=== PATIENT | female | born 1940 | race Caucasian/White ===

== ENCOUNTER 2017-01-02 06:56 | Day surgery (SDC) | payer OTHER ==
[2016-12-26 15:20] VITALS: BMI 28.0
--- NOTE | 2016-12-29 16:44 | HISTORY & PHYSICAL EXAMINATION ---
DATE OF ADMISSION: 01/02/2017 HISTORY OF PRESENT ILLNESS: A 76-year-old female presents for preop evaluation requesting surgery. Condition is located in the left heel and foot, described as aching and tender. Condition was noticed over 2 years ago. She denies any recent exposure, participation, or event or history of these conditions raise. Condition is graded as an 8 on a 10 point scale, gradually worsening over time, associated with signs and symptoms include aching, burning tenderness in the left. She indicates shoe gear can irritate the area more or improve it if there is no pressure over the area. She has had the pain in her heel for over 2 years. She had previous foot surgery performed on the right foot requesting a similar type of surgery performed on the left. She notes the pain in her left has gradually been worsening. She is unable to wear normal shoes due to discomfort over heel. She wears slip-on shoes and slippers most of the time to accommodate for the pain. Pain is graded as an 8-9 on a 10 point scale. Past treatments included x-ray, accommodative padding, accommodative shoes, and nonsteroidals with little relief. The patient refused to go to physical therapy, has had multiple conservative treatments by Dr. Gamez and is requesting surgical intervention, was sent to our office by Dr. Gamez for surgery. Due to the nature and severity of the discomfort, she is requesting surgical intervention. PAST SURGICAL HISTORY: Foot surgery in 2013, breast surgery, meniscus repair in 2015. PAST MEDICAL HISTORY: Breast cancer, hyperlipidemia, hypertension, and diabetes mellitus. MEDICATIONS: Simvastatin, aspirin, lisinopril, atenolol, metformin and glipizide. ALLERGIES: No known medical allergies. FAMILY HISTORY: Cancer. SOCIAL HISTORY: The patient denies smoking, alcohol or illicit drug use, and STDs. REVIEW OF SYSTEMS: Unremarkable except chief complaint. PHYSICAL EXAMINATION: VITAL SIGNS: BP 124/76, tympanic temperature is 97.3, height 5 feet 3 inches, weight 156 pounds, body mass index 28. CONSTITUTIONAL: The patient appears well-developed and nourished with good attention to body grooming and habitus. HEAD AND FACE: Head is normocephalic and atraumatic without any gross head, face, or neck masses. EYES: Conjunctivae and pupillary light and accommodation are normal. The right eye shows abnormal closure due to a lid restriction secondary to soft tissue. EARS, NOSE, MOUTH AND THROAT: Unremarkable. NECK: Supple. Trachea is midline. CARDIOVASCULAR: Normal S1, S2 without murmur, gallops, rubs, or clicks noted. RESPIRATORY: Chest is symmetric. No scars are visible. No port or pacemaker noted. GASTROINTESTINAL: Liver, abdominal organs, bladder, and kidneys show no abnormalities, tenderness, or rigidity. VASCULAR: Lower extremity DP 1/4, posterior tibial pulses 0/4 secondary to swelling, nonpalpable due to the ankle edema and digital hair is absent. DERMATOLOGIC: Achilles tendon on the left shows bony projections swelling with redness over this area, cicatrix posterior right heel over the Achilles area. NEUROLOGICAL: Touch, pin, vibratory pain, proprioception sensations are normal. MUSCULOSKELETAL: Muscle tone is normal. Muscle strength is 5/5 all groups tested. Examination of posterior aspect of the heel reveals decreased ankle joint flexion with knee flexed and extended. Exostosis to the left. Pain on direct palpation insertional area on the left. Examination of heel shows enlarged posterior superior aspect of the calcaneus with pain to palpation of the Achilles tendon area, decreased joint range of motion with knee flexed and extended. Ankle brachial index digital toe pressures on the left first 0.98, digital pressure on the left second 0.71, left third 0.78, left fourth 0.81, right first is 1, right second 0.65 showing mild disease, right third 0.2, right fourth 0.65 showing mild disease. ABIs are normal with medial calcinosis bilaterally and TBIs are normal except the right second and fourth toe showing mild disease, no evidence of significant lower extremity occlusive are clear of disease bilaterally IMPRESSION: 1. Status post surgical correction right heel Achilles tendon by Dr. Franks in 2013. 2. Equinus. 3. James deformity, left. 4. Achilles tendinitis, left. 5. Posterior bursitis secondary to James's deformity, difficulty walking, and pain lower extremity. PLAN: I explained the mechanical etiology of the discomfort. Conservative chipping consisting of rest, ice, analgesics, nonsteroidals, anti-inflammatory, night splints, physical therapy, steroid injections, stretching exercises, orthotics, and immobilization and explained the mechanical etiology, describe the James's deformity also called a pump bump that occur her occur in one or both feet, most commonly caused the shape of the calcaneus and biomechanics, heredity, high arches and tight Achilles tendon, prominent bump on the back of the heels and bony enlargement off the base to painful bursitis between the tendon and the bone due to the shoe irritation. Treatments consisting of rest, ice, analgesics, nonsteroidals, anti-inflammatory drugs, heel lifts, heel pad, shoe modification, night splints, physical therapy, steroid injections, stretching, orthotics, immobilization, avoid riding uphill. The patient was informed that nonsurgical treatment is targeted to reduce inflammation of the soft tissue given her history of the diabetes. I would recommend more conservative treatment. The patient notes she has had previous surgery to the right and just wants this "fixed". SURGICAL PROCEDURES TO BE PERFORMED: 1. James's resection left lower extremity. 2. Possible lengthening the Achilles tendon, removal of exostosis of the posterior calcaneus with possible reattachment of Achilles tendon, left lower extremity. This will be performed under general anesthesia as an outpatient at the hospital in prone position. The procedure, risks and complications were fully reviewed with the patient. Consent form and foot diagram and illustration reviewed in all there entirety. All the patient's questions were answered. Complications were discussed in detail with the patient including pain, infection, swelling that may or may not be excessive, pins and needles feeling, numbness, metatarsalgia, excessive bleeding, delay or nonhealing bone, delay or nonhealing of skin, enlarged scar, failure of the procedure, recurrence or worsening of condition which may or may not require further surgery, adverse reaction to anesthesia, allergic reaction to suture or other implant material, loss of toe, foot, or leg, flail toe, stiff toe, short toe, elevated toe, transfer lesion or callus, peripheral neurovascular complications such as phlebitis, damage to nerves or vascular structures, severe or chronic pain, chronic nerve pain, damage, and general medical complications. The patient will be required to be nonweightbearing in a cast for a minimum of 6-8 weeks followed by weightbearing cast immobilization for 2-4 weeks and not return to dress shoes for 3 months depending on the postop edema. The patient is aware this is an elective type procedure and I recommend a second opinion. The patient stated they understood. Consent form was signed with a copy of the foot diagram issued to the patient. Verbal and written postop instructions were given. The patient will return to the office for postop check or sooner if medically necessary. Instructed to keep the cast clean, dry, and intact until seen at the office. At the time of the preoperative appointment, prescriptions for Keflex and Percocet were dispensed.
[~2017-01-02] VITALS: Ht 160 cm; Wt 71.8 kg
[~2017-01-02 06:56] MED LIST: ASPI81TA28 PO; ATEN50TA8 PO; ATOR-24 PO; CEFAZOLIN 1000MG/55 ML D5W IV SCH; GLIP10TA9 PO; IBUP-1050 PO; LACTATED RINGER'S 1000ML 1,000 ML IV SCH; LSN20 PO; METF-384 PO; POLYSOL4 OP; ROPIVACAINE 0.5% 5 MG/ML 30 ML VIAL ONE; SITA100T3 PO; SODIUM CHLORIDE 0.9% 1000ML 1,000 ML IV SCH
[2017-01-02 07:05] VITALS: BP 170/93; PULSE 67; TEMP 36.6; O2SAT 98; Ht 160 cm; Wt 71.8 kg
[2017-01-02] MEDS ORDERED: LIDOCAINE HCL 2% 2 ML VIAL (20MG/ML) ONE (07:45)
[2017-01-02] MEDS ORDERED: GLYCOPYRROLATE INJ 0.2 MG/ML VIAL ONE (07:45)
[2017-01-02] MEDS ORDERED: ROCURONIUM BROMIDE 10 MG/ML 5 ML VIAL ONE (07:45)
[2017-01-02] MEDS ORDERED: ONDANSETRON INJ 2 MG/ML 2 ML VIAL ONE (07:45)
[2017-01-02] MEDS ORDERED: PROPOFOL IV EMULSION 10 MG/ML 20 ML VIAL IV ONE (07:45)
[2017-01-02] MEDS ORDERED: DEXAMETHASONE SOD INJ 4 MG/ML VIAL ONE (07:45)
[2017-01-02] MEDS ORDERED: NEOSTIGMINE METHYLSULFATE 5 MG/5 ML SYR ONE (07:45)
[2017-01-02] MEDS ORDERED: FENTANYL CITRATE INJ 50 MCG/1 ML 2 ML VIAL ONE (07:46)
[2017-01-02] MEDS ORDERED: MIDAZOLAM HCL 1 MG/ML 2ML VIAL ONE (07:46)
[2017-01-02] MEDS ORDERED: ATROPINE SULFATE 0.1 MG/ML 5ML SYR IV PRN (08:00)
[2017-01-02] MEDS ORDERED: ONDANSETRON INJ 2 MG/ML 2 ML VIAL IV PRN (08:00)
[2017-01-02] MEDS ORDERED: HYDROmorphone INJ 1 MG/ML SYR IV PRN (08:00)
[2017-01-02] MEDS ORDERED: FENTANYL CITRATE INJ 50 MCG/1 ML 2 ML VIAL IV PRN (08:00)
[2017-01-02] MEDS ORDERED: EpHEDrine SULFATE INJ 50 MG/ML AMP IV PRN (08:00)
--- NOTE | 2017-01-02 08:43 | History & Physical Bridge - [place] ---
H&P Re-Evaluation Bridge Note: I have examined the patient, reviewed the History & Physical and in the interval since the performance of the History & Physical I have noted the following changes of clinical significance: No changes noted
[2017-01-02] MEDS ORDERED: SODIUM CHLORIDE 0.9% 1000ML 1,000 ML IV SCH (08:47)
--- NOTE | 2017-01-02 08:47 | Discharge Instructions ---
Discharge Instructions Date of Service Jan 02, 2017. Admission Reason for Admission: [facility] Discharge Discharge Diagnosis / Problem: same as above Discharge Goals Goal(s): Decrease discomfort Activity Recommendations Activity Limitations: as noted below Medications: * Resume previous medications unless instructed by your surgeon. * Take your medications as prescribed. Call our office ([phone]) at any time, if you experience severe pain that does not subside shortly after taking your pain medication. Activity: * Do not put any standing weight on your operated foot/ankle. Use the crutches or walker as instructed. Special Care: * Keep your bandage clean and dry. Do not remove your bandage unless otherwise instructed. A small amount of blood may appear on the bandage over the surgical site. Call our office ([phone]) if you bandage becomes blood-soaked or wet. * Elevate your operated foot/ankle on pillows, above the level of your heart, as often as possible during the first 2-3 days following surgery. Keep your knee flexed slightly with a pillow under your knee when you elevate your foot/ankle. * Apply a ice bag to your foot/ankle over the operative site for 20-30 minutes out of each hour while you are awake. Do not allow the ice bag to directly contact bare skin. * Avoid bumping or handling any pins visible in your toes. If any pin feels or appears loose, call the office ([phone]). * Take your oral temperature in the morning and at bedtime. Call our office ([phone]) if your temperature rises above 101 degrees Fahrenheit. Call your surgeon's office at ([phone]) for any problems or concerns such as excessive bleeding and/or pain unrelieved by your prescribed pain medications. If you have any questions, please do not hesitate to ask them. Avoid all tobacco products. If you need help to stop smoking, call [place]'s FREE QUITLINE at . This is a free call. Follow-up: Follow-up with Dr. Matthews . Current Hospital Diet Patient's current hospital diet: Discharge Diet Recommended Diet: Diabetes Type 2 Diet Pending Studies Studies pending at discharge: no Medical Emergencies . Who to Call and When: Medical Emergencies: If at any time you feel your situation is an emergency, please call 911 immediately. . Non-Emergent Contact Non-Emergency issues call your: Primary Care Provider . "Provider Documentation" section prepared by Anita Dye. VTE Core Measure Inpt VTE Proph given/why not?: Treatment not indicated
[2017-01-02] MEDS ORDERED: PHENYLEPHRINE 100MCG/ML 5ML SYR ONE (10:08)
--- NOTE | 2017-01-02 10:14 | DIAGNOSTIC IMAGING REPORT ---
LEFT HEEL MIN 2 VIEWS CLINICAL HISTORY: LEFT ACHILLES LENGTHENING EXCISION BEONT POSTERIOR CALCANEUS postoperative evaluation COMPARISON: None. DISCUSSION: Evidence for posterior resection of the calcaneus. Localized operative soft tissue change. These images were used for intraoperative evaluation purposes. IMPRESSION: Posterior calcaneal operative change Electronically signed by: Rene Jean M.D. 01/02/2017 10:12 AM Dictated Date/Time: 01/02/2017 10:11 AM
--- NOTE | 2017-01-02 11:58 | DIAGNOSTIC IMAGING REPORT ---
LEFT FOOT MIN 3 VIEWS ROUTINE CLINICAL HISTORY: Postop study COMPARISON: None. DISCUSSION: The fine bony detail is obscured by a plaster cast. There are plantar calcaneal spurs. The patient appears be status post a posterior calcaneal osteotomy. IMPRESSION: Postsurgical changes involving the posterior calcaneus Electronically signed by: Gabe Anderson M.D. 01/02/2017 11:56 AM Dictated Date/Time: 01/02/2017 11:54 AM
--- NOTE | 2017-01-02 11:59 | OPERATIVE REPORT ---
DATE OF OPERATION: 01/02/2017 PREOPERATIVE DIAGNOSES: James's Achilles tendinitis equinus, retrocalcaneal spur, diabetes. POSTOPERATIVE DIAGNOSES: Same. PROCEDURES: 1. James's resection left lower extremity. 2. Exostectomy, left calcaneus. 3. Lengthening Achilles tendon. 4. Repair with reattachment of Achilles tendon, left lower extremity. SURGEON: Dr. Matthews. ANESTHESIA: General with regional block performed by anesthesia. MATERIALS: 2-0, 3-0 Vicryl, 4-0 nylon, [employer] SpeedBridge with 4 anchors and FiberWire. HEMOSTASIS: Pneumatic thigh tourniquet inflated to a level of 350 mmHg for a total tourniquet time of 90 minutes. COMPLICATIONS: None. The patient tolerated the procedure and anesthesia well without complications, transferred to recovery room with vital signs stable and neurovascular status intact. PROCEDURE: The patient was brought to the OR and placed on the OR table in supine position. Upon completion of general anesthesia and a regional block by the anesthesia department the extremity was scrubbed, prepped and draped in the usual aseptic fashion after placement of a well-padded thigh tourniquet. Attention was directed just posterior medial to the aspect of the Achilles tendon where an incision was made on the medial aspect as this was the most proliferative bony area that was noted. Care was taken to preserve all neurovascular structures. Dissection was carried down to the level of the Achilles tendon. Achilles tendon was identified. There was a large retrocalcaneal exostosis that was directly over the attachment site. The James's deformity was removed, the tendon was freed and only a partial lateral attachment was noted. Lengthening in a Z-plasty fashion was performed to increase the length of approximately 10 degrees of dorsiflexion. This was performed with an 11 blade. The retrocalcaneal exostosis was removed using a sagittal saw and gabriele. Intraoperative pictures were taken using C-arm and found complete removal of spur. The wound was copiously lavaged with normal saline, SpeedBridge 2 anchors proximal to the attachment, 2 anchors 1 mm distal to the attachment with FiberWire to reattach the Achilles tendon with the ankle at 90 degrees dorsiflexion. The wound was copiously lavaged with normal saline. Closure began in the deep structures using 2-0 Vicryl in a box stitch technique. Superficial structures were closed using 3-0 Vicryl in a box stitch technique. Skin margins were closed using 4-0 nylon. Pneumatic ankle tourniquet was released with normal hyperemic ruff digits 1 through 5. A well-padded plaster fiberglass cast was applied with the patient's foot at 90 degrees. The patient tolerated the procedure and anesthesia well without complications, transferred to recovery room with vital signs stable and neurovascular status intact. I attest to the content of the Intraoperative Record and any orders documented therein. Any exceptio ns are noted below.
--- NOTE | 2017-01-02 12:13 | Anesthesiology Progress Note ---
Anesthesia Post Op Note Date & Time Jan 02, 2017 at 12:12 Vital Signs Pain Intensity: 0 Vital Signs Past 12 Hours Date Time Temp Pulse Resp B/P Pulse Ox O2 Delivery O2 Flow Rate FiO2 01/02/17 12:10 65 16 155/75 94 Room Air 01/02/17 12:00 73 16 153/79 93 Room Air 01/02/17 11:50 70 16 160/81 100 Mask 10 01/02/17 11:40 71 16 160/79 99 Mask 10 01/02/17 11:30 36. 80 24 172/95 100 Mask 10 01/02/17 07:05 36.6 67 20 170/93 98 Room Air Notes Mental Status: alert / awake / arousable, participated in evaluation Pt Amnestic to Procedure: Yes Nausea / Vomiting: adequately controlled Pain: adequately controlled Airway Patency, RR, SpO2: stable & adequate BP & HR: stable & adequate Hydration State: stable & adequate Anesthetic Complications: no major complications apparent
[2017-01-02 12:15] VITALS: BP 164/79; PULSE 70; TEMP 36.6; O2SAT 96
[2017-01-02 12:45] VITALS: BP 140/78; PULSE 69; TEMP 37.1; O2SAT 95
[2017-01-02] MEDS ORDERED: OXYCODONE/ACETAMINOPHEN 5-325 TAB ONE (13:10)
[2017-01-02 13:15] VITALS: BP 140/74; PULSE 65; TEMP 36.6; O2SAT 95
== END 2017-01-02 14:00 | disposition home or self-care (01) ==
LOC: EDBD → C.ACU 06:56
PROVIDERS: ATTEND Podiatrist Foot & Ankle Surgery
DX: M77.32 Calcaneal spur, left foot (principal); M76.62 Achilles tendinitis, left leg; I10 Essential (primary) hypertension; E11.9 Type 2 diabetes mellitus without complications; Z85.3 Personal history of malignant neoplasm of breast; Z90.10 Acquired absence of unspecified breast and nipple; Z98.890 Other specified postprocedural states; E78.5 Hyperlipidemia, unspecified; Z79.899 Other long term (current) drug therapy; Z80.9 Family history of malignant neoplasm, unspecified